=== PATIENT | female | born 1955 | race Two or more races ===

== ENCOUNTER 2020-03-15 07:40 | Emergency (ER) | payer OTHER ==
[~2020-03-15] VITALS: Ht 154.9 cm; Wt 73.5 kg
[~2020-03-15 07:40] MED LIST: GLUCOTROL10 MG; METFORMIN HCL500 MG
== END 2020-03-15 10:36 | disposition home or self-care (01) ==
LOC: ER 07:40
DX: M71.58 Other bursitis, not elsewhere classified, other site (principal); M79.601 Pain in right arm

== ENCOUNTER 2024-09-23 10:33 | Emergency (ER) | payer OTHER ==
[~2024-09-23] VITALS: Ht 154.9 cm; Wt 63.5 kg
[~2024-09-23 10:33] MED LIST changes: +ADVIL DUAL ACT1 EACH PO; +FAMCICLOVIR500 MG PO
[2024-09-23] MEDS ORDERED: ONDANSETRON HCL 2 MG/ML VIAL IM ONE (11:15)
[2024-09-23] MEDS ORDERED: MECLIZINE HCL 25 MG TABLET PO ONE ×2 (11:15→11:27)
[2024-09-23] MEDS ORDERED: WATER FOR INJ.,BACTERIOSTATIC 30 ML VIAL IJ ONE (11:23)
[2024-09-23] MEDS ORDERED: ONDANSETRON HCL 2 MG/ML VIAL ONE (11:23)
[2024-09-23 11:46] LABS: BASO % 0.7 % (0.1-1.2); EOS # 0.18 (0.04-0.54); EOS % 2.5 % (0.7-7.0); HEMATOCRIT 37.4 % (34.1-44.9); HEMOGLOBIN 12.3 g/dL (11.2-15.7); LYMPH # 1.64 (1.18-3.74); MEAN CORPUSCULAR HEMOGLOBIN 29.8 pg (25.6-32.2); MONO # 0.49 (0.24-0.82); MONO % 6.9 % (4.7-12.5); NEUT # 4.77 (1.56-6.13); NEUT % 66.8 % (34.0-71.1); PLATELET COUNT 226 K/uL (163-369); RED BLOOD COUNT 4.13 M/uL (3.93-5.22); RED CELL DISTRIBUTION WIDTH 13.2 % (11.6-14.4)
== END 2024-09-23 13:22 | disposition home or self-care (01) ==
LOC: ER 10:35
PROVIDERS: General Practice
DX: H81.13 Benign paroxysmal vertigo, bilateral (principal); E11.9 Type 2 diabetes mellitus without complications; Z79.84 Long term (current) use of oral hypoglycemic drugs

== ENCOUNTER 2024-12-28 07:58 | Emergency (ER) | payer OTHER ==
[~2024-12-28] VITALS: Ht 154.9 cm; Wt 64.4 kg
== END 2024-12-28 09:15 | disposition home or self-care (01) ==
LOC: ER 07:58
DX: R20.2 Paresthesia of skin (principal); E11.9 Type 2 diabetes mellitus without complications; Z79.84 Long term (current) use of oral hypoglycemic drugs